=== PATIENT | female | born 1970 | race Caucasian/White ===

== ENCOUNTER 2023-04-26 12:06 | Observation (INO) | payer BC, SELFPAY ==
[2023-04-26] VITALS (10 sets, daily range): BP systolic 97–146; BP diastolic 41–88; PULSE 72–84; RESP 12–20; TEMP 36.2–36.8; O2SAT 91–100; BMI 31.1
--- NOTE | ~2023-04-26 | CT_ITS ---
EXAMINATION: CT HEAD WITHOUT CONTRAST CLINICAL INFORMATION: Syncope. Head strike. COMPARISON: None available. TECHNIQUE: Contiguous axial imaging was performed from the skull base to vertex without intravenous administration of contrast. This CT examination was performed using dose optimization techniques as appropriate, variously including the following: *Automated exposure control *Adjustment of mA and/or kV according to patient size (this includes techniques or standardized protocols for targeted exams where dose is matched to indication/reason for exam; i.e. extremities or head) *Use of iterative reconstruction technique DLP: 597 mGy-cm FINDINGS: There is no evidence of acute intracranial hemorrhage or territorial infarction. No mass effect or midline shift is seen. Ruiz to white matter differentiation is well preserved. No extra-axial fluid collections are identified. No hydrocephalus. The calvarium is intact. The mastoid air cells are clear. Mucoperiosteal thickening of the ethmoid air cells. CT/CT head/brain wo IV con IMPRESSION: No acute intracranial pathology.
[2023-04-26 12:31] LABS: Glucose, Whole Blood 76 mg/dL (60-115)
--- NOTE | 2023-04-26 12:32 | ECG_ITS ---
Test Reason : syncope Blood Pressure : / mmHG Vent. Rate : 078 BPM Atrial Rate : 078 BPM P-R Int : 164 ms QRS Dur : 142 ms QT Int : 418 ms P-R-T Axes : 021 039 197 degrees QTc Int : 476 ms Normal sinus rhythm Left bundle branch block Abnormal ECG No previous ECGs available Referred By: Marisa Head Electronically Signed By:FROYLAN ZAPATA
--- NOTE | 2023-04-26 12:32 | ED.SYNCOPE ---
HPI - Syncope General Chief Complaint: Syncope Stated Complaint: SYNCOPAL EPISODE DIZZY NAUSEA Time Seen by Provider: 04/26/23 12:06 Source: patient and EMS Mode of arrival: EMS Limitations: no limitations History of Present Illness HPI narrative: 53 yo female with PMHx significant for diabetes, HTN, CAD presents to the ED today via EMS s/p pre syncopal episode just prior to arrival. Patient states that she was sitting at her kitchen table when she got up to walk to the bathroom and immediately felt faint, had blurry vision and fell to the floor hitting her head on the kitchen chair. Denies LOC. Not on AC. She was unable to get up directly after the fall, her sister had to help her up. Reports feeling fatigued over the last couple weeks and notes a history of anemia. Additionally she states that she has struggled with syncopal episodes since she was a child and was diagnosed with a LBBB. Denies fever, chills, sweats, dizziness, chest pain, palpitations, SOB, CONN, n/v, abdominal pain, lower extremity tingling numbness or weakness. Related Data Home Medications Medication Instructions Recorded Confirmed atorvastatin 20 mg tablet 20 mg PO DAILY 04/26/23 04/26/23 carvedilol 12.5 mg tablet 12.5 mg PO BID 04/26/23 04/26/23 cholecalciferol (vitamin D3) 25 25 mcg PO DAILY 04/26/23 04/26/23 mcg (1,000 unit) tablet (Vitamin D3) diazepam 5 mg tablet 5 mg PO BID PRN Anxiety 04/26/23 04/26/23 gabapentin 600 mg tablet 600 mg PO TID 04/26/23 04/26/23 ibuprofen 800 mg tablet 800 mg PO Q8H PRN Pain 04/26/23 04/26/23 insulin glargine 100 unit/mL (3 28 unit subcut BID 04/26/23 04/26/23 mL) subcutaneous pen lisinopril 5 mg tablet 5 mg PO DAILY 04/26/23 04/26/23 pantoprazole 40 mg granules 40 mg PO DAILY 04/26/23 04/26/23 delayed-release for susp in packet quetiapine 100 mg tablet 100 mg PO BID 04/26/23 04/26/23 quetiapine 400 mg tablet 400 mg PO BEDTIME 04/26/23 04/26/23 semaglutide 14 mg tablet (Rybelsus) 14 mg PO DAILY 04/26/23 04/26/23 trazodone 150 mg tablet 300 - 450 mg PO BEDTIME PRN 04/26/23 04/26/23 Insomnia valacyclovir 500 mg tablet 500 mg PO DAILY 04/26/23 04/26/23 Allergies Allergy/AdvReac Type Severity Reaction Status Date / Time Sulfa (Sulfonamide Allergy Rash Verified 04/26/23 12:28 Antibiotics) canagliflozin [From Invokana] AdvReac Unknown Verified 04/26/23 12:28 metformin AdvReac Diarrhea Verified 04/26/23 12:28 Review of Systems Review of Systems: Constitutional: No fever, No chills, No fatigue, No malaise ENT/Mouth: No ear pain, No hearing loss, No nasal congestion, No sinus pain, No rhinorrhea, No sore throat Eyes: No eye pain, No swelling, No redness, + vision changes, No foreign body, No discharge Cardio: No chest pain, No palpitations, No dyspnea on exertion, No orthopnea, No edema Respiratory: No SOB, No cough, No sputum, No wheezing, No dyspnea, No hemoptysis GI: No nausea, No vomiting, No hematemesis, No abdominal pain, No diarrhea, No constipation, No hematochezia, No melena : No irregular bleeding, No dysuria, No frequency, No urgency, No hesitancy, No hematuria, No flank pain MSK: No back pain, No neck pain, No joint pain, No myalgias Skin: No skin lesions, No rashes Neuro: No weakness, No numbness, No paresthesias, No LOC, No dizziness, No headache All other systems reviewed and are negative. [facility] Past Medical History Attestation statement: The following information was validated with the patient. Source: old records reviewed Medical History Gastroesophageal reflux disease Mood disorder Essential hypertension Coronary artery disease Insulin dependent type 2 diabetes mellitus Social History Social History Household Members: Family Housing: House Alcohol intake: never Patient Tobacco Use Status: Former Tobacco user Tobacco use type: Cigarette e-Cigarette/Vaping Use: Former Use Second Hand Smoke Exposure: No Physical Exam Vital Signs: Vital Signs: Last Vital Signs Temp 98.0 F 04/27/23 07:36 Pulse 70 04/27/23 09:41 Resp 19 04/27/23 07:36 BP 122/64 04/27/23 09:41 Pulse Ox 96 04/27/23 09:41 O2 Del Method Room Air 04/27/23 09:41 BMI result Body Mass Index 31.1 Vital signs stable General: Nontoxic appearing. NAD Skin: Warm and dry. No rashes or lesions. Head: Normocephalic, atraumatic. EENT: PERRLA. EOM intact. Nasal septum midline without hematoma, nares patent. Oropharynx normal. Moist mucous membranes. Neck: Supple without LAD. Normal ROM. Trachea midline. Cardiac: Chest wall symmetric. RRR. S1 and S1 appreciated. No MRG. No JVD. Lungs: CTA bilaterally. No rales, rhonchi, or wheezes. Normal respiratory effort without accessory muscle use. No flail chest. Abdomen: No visible lesions or scars. Soft, NT/ND. No rebound tenderness or guarding. Normoactive BS x4. Spine: No midline spinous tenderness. No deformity or step off. Ext: Upper and lower extremities atraumatic. Full ROM throughout. Capillary refill <2 seconds in all extremities. Pulses 2+ equal b/l. Neuro: Alert and oriented x3. Normal speech. CN 2-12 grossly intact. Strength 5/5 intact throughout. Sensation intact to light touch. NV intact distally. Reflexes 2+ bilaterally. Normal finger to nose, heel to [place]. Ambulating with steady gait. Psych: Appropriate mood and affect. Responds appropriately to questions. Course Course Course Narrative: 1326-- CBC without leukocytosis or anemia. EKG showing NSR at 78 BPM with LBBB without priors to compare to (per patient this is her baseline). Chemistry without acute electrolyte abnormalities requiring intervention. POC glucose 81 after drinking orange juice. Lipase WNL. Urine with 4+ bacteria however negative leukocyte esterase, nitrates, minimal WBC, likely contamination as patient is asymptomatic > no urinary tract infection. > orthostatics negative > patient currently receiving IVF > covid and influenza negative > Ambulating with steady gate to the bathroom 1415-- patient states that she is feeling better in the ED after receiving IVF, no longer feeling faint or having blurred vision. Once IVF are complete, will have nurse trial ambulation. 1213-- Signed out to my colleague Katie RODRIGUEZ [id number]-- ED care transferred to PATY Rubi pending ambulation trial and anticipated discharge Medications Administered Generic Name Dose Route Start Last Admin Trade Name Freq PRN Reason Stop Dose Admin Acetaminophen 650 mg 04/26/23 19:20 04/26/23 20:22 Acetaminophen 325 Mg Tablet PO 650 mg Q6H PRN Administration Pain, Mild (Pain Scale 1-3) Atorvastatin Calcium 20 mg 04/27/23 09:00 04/27/23 09:34 Atorvastatin Calcium 20 Mg Tablet PO 20 mg DAILY TRACI Administration Carvedilol 12.5 mg 04/27/23 09:00 04/27/23 09:33 Carvedilol 12.5 Mg Tablet PO 12.5 mg BID TRACI Administration Protocol Gabapentin 600 mg 04/26/23 22:50 04/27/23 09:34 Gabapentin 600 Mg Tablet PO 600 mg TID TRACI Administration Insulin Glargine 22 unit 04/27/23 09:00 04/27/23 09:38 Insulin Glargine,Hum.Rec.Anlog 100 Unit/Ml 10 Ml Vial SUBCUT 22 unit BID TRACI Administration Insulin Human Lispro 0 unit 04/26/23 21:00 04/27/23 08:18 Insulin Lispro 100 Unit/Ml 3 Ml Vial SUBCUT Not Given QIDACHS [facility] Protocol Lisinopril 5 mg 04/27/23 09:00 04/27/23 09:36 Lisinopril 5 Mg Tablet PO 5 mg DAILY TRACI Administration Protocol Omeprazole 20 mg 04/27/23 09:00 04/27/23 09:37 Omeprazole 20 Mg Capsule.Dr PO 20 mg DAILY TRACI Administration Quetiapine Fumarate 100 mg 04/27/23 09:00 04/27/23 09:35 Quetiapine Fumarate 100 Mg Tablet PO 100 mg BID TRACI Administration Sodium Chloride 3 ml 04/27/23 00:00 04/27/23 09:38 0.9 % Sodium Chloride Flush 3 Ml Syringe IVFLUSH 3 ml QSHIFT TRACI Administration Trazodone HCl 300 mg 04/26/23 22:48 04/26/23 23:30 Trazodone Hcl 100 Mg Tablet PO 300 mg BEDTIME PRN Administration Insomnia Valacyclovir HCl 500 mg 04/27/23 09:00 04/27/23 09:32 Valacyclovir Hcl 500 Mg Tablet PO 500 mg DAILY TRACI Administration Vitamin D 25 mcg 04/27/23 09:00 04/27/23 09:35 Cholecalciferol (Vitamin D3) 25 Mcg Tablet PO 25 mcg DAILY TRACI Administration Discontinued Medications Generic Name Dose Route Start Last Admin Trade Name Malik PRN Reason Stop Dose Admin Sodium Chloride 1,000 mls @ 999 mls/hr 04/26/23 14:15 04/26/23 15:53 Ns IV 04/26/23 15:15 Infused .Q1H1M TRACI Infusion Quetiapine Fumarate 400 mg 04/26/23 22:43 04/26/23 23:30 Quetiapine Fumarate 400 Mg Tablet PO 04/26/23 22:44 400 mg ONCE ONE Administration Medical Decision Making Medical Decision Making [facility] Narrative: 53 yo female with PMHx significant for diabetes presents to the ED today via EMS s/p pre syncopal episode just prior to arrival. VSS. Patient nontoxic appearing in NAD. PERRLA. RRR. Lungs CTA b/l. No midline spinous tenderness, deformity, or step-off. Exam nonfocal. Cerebellum intact. Ambulating with steady gait. Clinical concern for orthostatic hypotension vs hypoglycemia vs vasovagal syncope > will obtain basic labs and orthostatic vital signs. Patient will be given IVF, Low clinical concern for ACS or arrhythmia > will obtain EKG. Concern for possible viral syndrome > will obtain serology. Low clinical concern for CVA/TIA, ICH, cerebellar stroke > will obtain a head CT. Low suspicion for UTI > will obtain urinalysis. Differential Diagnosis Differential Diagnoses: The differential diagnosis associated with the presentation includes Clinical concern for orthostatic hypotension vs hypoglycemia vs vasovagal syncope > will obtain basic labs and orthostatic vital signs. Patient will be given IVF, Low clinical concern for ACS or arrhythmia > will obtain EKG. Concern for possible viral syndrome > will obtain serology. Low clinical concern for CVA/TIA, ICH, cerebellar stroke > will obtain a head CT. Low suspicion for UTI > will obtain urinalysis. Admission/Observation Consideration of admission/observation: Escalation of care including admission/observation considered Unlikely Consult Healthcare Provider Management of the patient was discussed with: Hospitalist Lab Data [facility] Lab Attestation statement: I reviewed the patient's lab results. See above course narrative. 04/27/23 06:26 04/27/23 06:26 Labs: Lab Results 04/26/23 04/26/23 04/26/23 Range/Units 12:19 13:06 14:06 WBC 10.1 (4.8-10.8) X10*3/uL RBC 4.24 (4.20-5.50) X10*6/uL Hgb 12.7 (12.0-16.0) g/dl Hct 38.4 (37.0-47.0) % MCV 90.6 (80.0-98.0) fL MCH 30.0 (27.0-33.0) pg MCHC 33.1 (31.0-35.0) g/dl RDW 12.9 (11.0-16.0) % Plt Count 274 (160-400) X10*3/uL MPV 10.8 (9.4-12.3) fL Immature Gran % (Auto) 0.3 (0.0-0.4) % Neut % (Auto) 73.1 H (45-73) % Lymph % (Auto) 17.9 L (20-40) % [place] % (Auto) 6.9 (2-11) % Eos % (Auto) 1.3 (0-4) % Baso % (Auto) 0.5 (0-2) % Lymph # (Auto) 1.8 (1.2-4.9) X10*3/uL [place] # (Auto) 0.7 (0.1-1.2) X10*3/uL Eos # (Auto) 0.1 (0.0-0.4) X10*3/uL Baso # (Auto) 0.1 (0.0-0.2) X10*3/uL Abs Immat Gran (auto) 0.03 (0.00-0.03) X10*3/uL Absolute Neuts (auto) 7.4 (2.0-8.3) x10*3/uL Absolute Nucleated RBC 0.000 (0.0-0.012) X10*3/uL Nucleated RBC % (auto) 0.0 (0.0-0.2) /100WBC PT (11.1-13.3) SEC INR (0.9-1.1) APTT (26.0-36.4) SEC D-Dimer High Sensitivty NG/ML Sodium 139 (135-145) mmol/L Potassium 4.8 (3.3-5.1) mmol/L Chloride 107 (96-108) mmol/L Carbon Dioxide 28 (22-29) mmol/L Anion Gap 9 L (12-20) BUN 14 (9-16) mg/dL Creatinine 0.77 (0.5-1.4) mg/dL Estim Creat Clear Calc 79.0 Estimated GFR > 60 POC Glucose 76 (60-115) mg/dL Random Glucose 85 (60-115) mg/dL Calcium 9.8 (8.4-10.2) mg/dL Magnesium 1.8 (1.6-2.6) mg/dL Total Bilirubin 0.3 (0.0-1.0) mg/dL AST 20 (5-31) U/L ALT 17 (0-31) U/L Alkaline Phosphatase 83 (39-117) U/L Troponin I High Sens (<3.5-17.0) ng/L Total Protein 7.2 (6.5-8.0) g/dL Albumin 4.1 (3.5-5.0) g/dL Lipase 8 (8-78) U/L Urine Color Yellow Urine Appearance Cloudy Urine pH 5.5 (5.0-9.0) Ur Specific [place] 1.025 (1.005-1.025) Urine Protein 30 (1+) H (Neg-Trace) mg/dL Urine Glucose (UA) Negative (Negative) mg/dL Urine Ketones Trace (Negative) mg/dL Urine Blood Negative (Negative) Urine Nitrite Negative (Negative) Ur Leukocyte Esterase Negative (Negative) Urine RBC 0-2 (0-2) /HPF Urine WBC 0-5 (0-5) /HPF Ur Squamous Epith Cells >20 (0-2) /HPF Urine Bacteria 4+ (None Seen) Hyaline Casts 3-5 (0-2) /LPF COVID-19 (JENNIFER) Negative (Negative) COVID-19 Clin Com See Note Influenza Type A (CYNTHIA) Invalid Negative (Negative) Influenza Type B (CYNTHIA) Invalid Negative (Negative) Influenza A & B Note See Note See Note 04/26/23 04/26/23 Range/Units 14:15 17:06 WBC (4.8-10.8) X10*3/uL RBC (4.20-5.50) X10*6/uL Hgb (12.0-16.0) g/dl Hct (37.0-47.0) % MCV (80.0-98.0) fL MCH (27.0-33.0) pg MCHC (31.0-35.0) g/dl RDW (11.0-16.0) % Plt Count (160-400) X10*3/uL MPV (9.4-12.3) fL Immature Gran % (Auto) (0.0-0.4) % Neut % (Auto) (45-73) % Lymph % (Auto) (20-40) % [place] % (Auto) (2-11) % Eos % (Auto) (0-4) % Baso % (Auto) (0-2) % Lymph # (Auto) (1.2-4.9) X10*3/uL [place] # (Auto) (0.1-1.2) X10*3/uL Eos # (Auto) (0.0-0.4) X10*3/uL Baso # (Auto) (0.0-0.2) X10*3/uL Abs Immat Gran (auto) (0.00-0.03) X10*3/uL Absolute Neuts (auto) (2.0-8.3) x10*3/uL Absolute Nucleated RBC (0.0-0.012) X10*3/uL Nucleated RBC % (auto) (0.0-0.2) /100WBC PT 13.1 (11.1-13.3) SEC INR 1.1 (0.9-1.1) APTT 34.2 (26.0-36.4) SEC D-Dimer High Sensitivty < 150 NG/ML Sodium (135-145) mmol/L Potassium (3.3-5.1) mmol/L Chloride (96-108) mmol/L Carbon Dioxide (22-29) mmol/L Anion Gap (12-20) BUN (9-16) mg/dL Creatinine (0.5-1.4) mg/dL Estim Creat Clear Calc Estimated GFR POC Glucose 81 (60-115) mg/dL Random Glucose (60-115) mg/dL Calcium (8.4-10.2) mg/dL Magnesium (1.6-2.6) mg/dL Total Bilirubin (0.0-1.0) mg/dL AST (5-31) U/L ALT (0-31) U/L Alkaline Phosphatase (39-117) U/L Troponin I High Sens 21.4 H (<3.5-17.0) ng/L Total Protein (6.5-8.0) g/dL Albumin (3.5-5.0) g/dL Lipase (8-78) U/L Urine Color Urine Appearance Urine pH (5.0-9.0) Ur Specific [place] (1.005-1.025) Urine Protein (Neg-Trace) mg/dL Urine Glucose (UA) (Negative) mg/dL Urine Ketones (Negative) mg/dL Urine Blood (Negative) Urine Nitrite (Negative) Ur Leukocyte Esterase (Negative) Urine RBC (0-2) /HPF Urine WBC (0-5) /HPF Ur Squamous Epith Cells (0-2) /HPF Urine Bacteria (None Seen) Hyaline Casts (0-2) /LPF COVID-19 (JENNIFER) (Negative) COVID-19 Clin Com Influenza Type A (CYNTHIA) (Negative) Influenza Type B (CYNTHIA) (Negative) Influenza A & B Note Independent Interpretation I performed an independent interpretation of an: EKG and CT Scan Interpretation: EKG with normal sinus rhythm at 78 bpm, left bundle-branch block, no acute ischemic changes CT head without acute intracranial pathology, agree with radiologist's interpretation. Radiology Impression Discussion of test interpretation with radiology: I have reviewed the radiologist's reading. Radiologist Impression: CT head/brain wo IV con IMPRESSION: No acute intracranial pathology. Independent Historian Clinical information obtained from an independent historian. History obtained from or confirmed by: EMS Prescription Management I considered prescription management with: Pain Medication Chronic Conditions Patient?s care impacted by: Diabetes and Hypertension Critical Care Time Critical Care Time Critical Care Time: Yes Total Critical Care Time: 35 Attestation: Critical care time in the amount of 35 minutes has been provided to the patient in terms of direct patient care, frequent reevaluation, consultation with hospitalist, review and interpretation of medical data and results, and management of potentially life-threatening conditions. This is all outside of any medical procedures. Discharge Plan Discharge Clinical Impression: Postural dizziness with presyncope, Hypoglycemia Patient Disposition: Admitted as Observation Interventions: Admission Worksheet (ED) Last Done: 04/26/23 22:19 Discharge Date/Time: 04/26/23 22:20
--- NOTE | 2023-04-26 12:43 | PC.NURSE ---
NICHOLASChai from [facility] where she had a witnessed syncopal episode this morning. Hit nose on chair, reported vomiting x1 after hitting head, along with blurry vision. No LOC. A & Ox3, speech wnl. No motor deficits are noted, muscle strength is 5/5 bilaterally. Denies any blurry vision/TATE/N/V currently. POC 76. Placed on bedside monitor. 20 L ac from EMS, Brant laravalentina changed to hospitals. Lung sounds CTA in all dc.
[2023-04-26 13:10] LABS: MANUAL DIFF FLAG NO
[2023-04-26 13:14] LABS: Basophils Absolute Auto 0.1 X10*3/uL (0.0-0.2); Basophils Percent Auto 0.5 % (0-2); Eosinophils Absolute Auto 0.1 X10*3/uL (0.0-0.4); Eosinophils Percent Auto 1.3 % (0-4); Hematocrit 38.4 % (37.0-47.0); Hemoglobin 12.7 g/dl (12.0-16.0); Imm Gran Abs Auto 0.03 X10*3/uL (0.00-0.03); Imm Gran Pct Auto 0.3 % (0.0-0.4); Lymphocytes Absolute Auto 1.8 X10*3/uL (1.2-4.9); Lymphocytes Percent Auto 17.9 % (20-40); Mean Corpuscular HGB Conc 33.1 g/dl (31.0-35.0); Mean Corpuscular Volume 90.6 fL (80.0-98.0); Mean Platelet Volume 10.8 fL (9.4-12.3); Monocytes Absolute Auto 0.7 X10*3/uL (0.1-1.2); Monocytes Percent Auto 6.9 % (2-11); Neutrophils Absolute Auto 7.4 x10*3/uL (2.0-8.3); Neutrophils Percent Auto 73.1 % (45-73); Platelet Count 274 X10*3/uL (160-400); Red Blood Count 4.24 X10*6/uL (4.20-5.50); Red Cell Distribution Width 12.9 % (11.0-16.0); White Blood Count 10.1 X10*3/uL (4.8-10.8)
[2023-04-26 13:31] LABS: Alanine Aminotransferase 17 U/L (0-31); Albumin Level 4.1 g/dL (3.5-5.0); Alkaline Phosphatase 83 U/L (39-117); Anion Gap 9 (12-20); Aspartate Amino Transferase 20 U/L (5-31); Bilirubin Total 0.3 mg/dL (0.0-1.0); Blood Urea Nitrogen 14 mg/dL (9-16); Calcium 9.8 mg/dL (8.4-10.2); Carbon Dioxide 28 mmol/L (22-29); Chloride 107 mmol/L (96-108); Estimated Glomerular Filt Rate > 60; Glucose Random 85 mg/dL (60-115); Lipase 8 U/L (8-78); Magnesium 1.8 mg/dL (1.6-2.6); Potassium 4.8 mmol/L (3.3-5.1); Sodium 139 mmol/L (135-145); Total Protein 7.2 g/dL (6.5-8.0)
[2023-04-26 13:34] LABS: COVID-19 Test Negative (Negative); IDNOW Serial# 08D9AD1C
[2023-04-26 13:35] LABS: IDNOW Serial# BCCEAD1C; Influenza A Invalid (Negative); Influenza B2 Invalid (Negative)
[2023-04-26] MEDS: 0.9 % Sodium Chloride 1,000 ML 999 ML IV (14:12)
[2023-04-26 14:17] LABS: Appearance Urine Cloudy; Color Urine Yellow; Glucose Urine UA Negative (Negative); Leukocyte Esterase Urine Negative (Negative); Nitrite Urine Negative (Negative); PH 5.5 (5.0-9.0); Specific Gravity - Urine 1.025 (1.005-1.025); UMIC TRIGGER UACC YES; Urine Blood Negative (Negative); Urine Ketones Trace mg/dL (Negative); Urine Protein 30 (1+) mg/dL (Neg-Trace)
--- NOTE | 2023-04-26 14:17 | PC.NURSE ---
Resting quietly in bed. Fluids started as ordered. Friend at bedside. NAD.
[2023-04-26 14:18] LABS: Glucose, Whole Blood 81 mg/dL (60-115)
[2023-04-26 14:20] LABS: Bacteria Urine 4+ (None Seen); RBC Urine 0-2 /HPF (0-2); Squamous Epithelial Cell Urine >20 /HPF (0-2); WBC Urine 0-5 /HPF (0-5)
[2023-04-26 14:29] LABS: IDNOW Serial# BCCEAD1C; Influenza A Negative (Negative); Influenza B2 Negative (Negative)
[2023-04-26 17:36] LABS: INTERNATIONAL NORM RATIO 1.1 (0.9-1.1); Prothrombin Time 13.1 SEC (11.1-13.3)
[2023-04-26 17:38] LABS: Partial Thromboplastin Time 34.2 SEC (26.0-36.4); Troponin-I High Sensitivity 21.4 ng/L (<3.5-17.0)
[2023-04-26 17:43] LABS: D Dimer High Sensitivity < 150 NG/ML
--- NOTE | 2023-04-26 19:21 | PM.IMHP ---
History of Present Illness Date of Service: 04/26/23 Chief Complaint: Syncope This is a 53-year-old female with pertinent history of insulin-dependent diabetes mellitus, essential hypertension, CAD, history of left bundle branch block, mood disorder, gastroesophageal reflux disease presents to the emergency department for evaluation of syncope. Patient states she has had a history of syncope and was diagnosed with left bundle branch block many years ago. On the day of presentation, patient got up from a seating position and felt dizzy and lightheaded. The next thing she knew she was on the ground. It was associated with nausea. Patient states she thinks she was passed out for about 3-4 minutes. No repeat jerking movement of extremities. No chest pain or palpitations prior to passing out. She denies fever, chills, shortness of breath, abdominal pain, changes in urinary or bowel habits. In the emergency department, mild elevation of troponin seen Review of Systems Constitutional: Constitutional: Reports no additional constitutional complaints ENT: Reports dizziness Cardiovascular: Cardiovascular: Reports no additional cardiovascular complaints and Reports syncope Respiratory: Respiratory: Reports no additional respiratory complaints Gastrointestinal: Gastrointestinal: Reports no additional gastrointestinal complaints Genitourinary: Genitourinary: Reports no additional female genitourinary complaints Neurologic: Reports dizziness and Reports syncope [facility] Medical History Gastroesophageal reflux disease Mood disorder Essential hypertension Coronary artery disease Insulin dependent type 2 diabetes mellitus Pertinent family history: No family history of early CAD Social History Advance Directives: No Advance Directives Information Provided: Yes Meds Allergies Allergy/AdvReac Type Severity Reaction Status Date / Time Sulfa (Sulfonamide Allergy Rash Verified 04/26/23 12:28 Antibiotics) canagliflozin [From Invokana] AdvReac Unknown Verified 04/26/23 12:28 metformin AdvReac Diarrhea Verified 04/26/23 12:28 Physical Exam Vital Signs and Narrative: Vital Signs: Last Vital Signs Temp 98.3 F 04/26/23 12:11 Pulse 74 04/26/23 14:27 Resp 12 04/26/23 14:27 BP 120/71 04/26/23 14:27 Pulse Ox 97 04/26/23 14:27 O2 Del Method Room Air 04/26/23 14:27 BMI result Body Mass Index 31.1 Middle-aged female lying in bed in no distress Neck supple, no JVD Regular rate and rhythm, S1-S2 heard Regular breath sounds bilaterally, no wheezing or crackles appreciated Abdomen soft nontender, no guarding, no rigidity Patient is awake, alert and oriented to self, place, time and person ; no focal motor deficit Psych: Normal mood No pedal edema Results Labs 04/26/23 13:06 04/26/23 13:06 Labs: Laboratory Results - last 24 hr 04/26/23 04/26/23 04/26/23 12:19 13:06 14:06 MCV 90.6 MCH 30.0 MCHC 33.1 RDW 12.9 Plt Count 274 MPV 10.8 Immature Gran % (Auto) 0.3 Neut % (Auto) 73.1 H Lymph % (Auto) 17.9 L [place] % (Auto) 6.9 Eos % (Auto) 1.3 Baso % (Auto) 0.5 Lymph # (Auto) 1.8 [place] # (Auto) 0.7 Eos # (Auto) 0.1 Baso # (Auto) 0.1 Abs Immat Gran (auto) 0.03 Absolute Neuts (auto) 7.4 Absolute Nucleated RBC 0.000 Nucleated RBC % (auto) 0.0 PT INR APTT D-Dimer High Sensitivty Anion Gap 9 L Estim Creat Clear Calc 79.0 Estimated GFR > 60 POC Glucose 76 Random Glucose 85 Calcium 9.8 Magnesium 1.8 Total Bilirubin 0.3 AST 20 ALT 17 Alkaline Phosphatase 83 Total Protein 7.2 Albumin 4.1 Lipase 8 Urine Color Yellow Urine Appearance Cloudy Urine pH 5.5 Ur Specific [place] 1.025 Urine Protein 30 (1+) H Urine Glucose (UA) Negative Urine Ketones Trace Urine Blood Negative Urine Nitrite Negative Ur Leukocyte Esterase Negative Urine RBC 0-2 Urine WBC 0-5 Ur Squamous Epith Cells >20 Urine Bacteria 4+ Hyaline Casts 3-5 COVID-19 (JENNIFER) Negative COVID-19 Clin Com See Note Influenza Type A (CYNTHIA) Invalid Negative Influenza Type B (CYNTHIA) Invalid Negative Influenza A & B Note See Note See Note 04/26/23 04/26/23 14:15 17:06 MCV MCH MCHC RDW Plt Count MPV Immature Gran % (Auto) Neut % (Auto) Lymph % (Auto) [place] % (Auto) Eos % (Auto) Baso % (Auto) Lymph # (Auto) [place] # (Auto) Eos # (Auto) Baso # (Auto) Abs Immat Gran (auto) Absolute Neuts (auto) Absolute Nucleated RBC Nucleated RBC % (auto) PT 13.1 INR 1.1 APTT 34.2 D-Dimer High Sensitivty < 150 Anion Gap Estim Creat Clear Calc Estimated GFR POC Glucose 81 Random Glucose Calcium Magnesium Total Bilirubin AST ALT Alkaline Phosphatase Total Protein Albumin Lipase Urine Color Urine Appearance Urine pH Ur Specific [place] Urine Protein Urine Glucose (UA) Urine Ketones Urine Blood Urine Nitrite Ur Leukocyte Esterase Urine RBC Urine WBC Ur Squamous Epith Cells Urine Bacteria Hyaline Casts COVID-19 (JENNIFER) COVID-19 Clin Com Influenza Type A (CYNTHIA) Influenza Type B (CYNTHIA) Influenza A & B Note Imaging Radiologist's Impressions: Impressions Head CT 04/26/23 13:06 IMPRESSION: No acute intracranial pathology. Assessment and Plan (1) Syncope: Status: Acute Plan This is a 53-year-old female with pertinent history of insulin-dependent diabetes mellitus, essential hypertension, CAD, history of left bundle branch block, mood disorder, gastroesophageal reflux disease presents to the emergency department for evaluation of syncope. #. Syncope. ?orthostatic. Patient resuscitated with IV crystalloids in the ER. Will repeat orthostatics in a.m.. Will admit patient with cardiac monitoring for observation. #. Elevated troponin. Likely in the setting of increased amount. Trend #. CAD. On aspirin, high-intensity statin and beta-elijah #. Essential hypertension. Continue home antihypertensives #. Mood disorder. Continue home mood stabilizers #. Insulin-dependent diabetes mellitus. Initiating Accu-Cheks with sliding scale insulin #. Gastroesophageal reflux disease. On PPI Med rec pending DVT prophylaxis: Lovenox Full code Time Spent With Patient Time: Total time managing care of this patient today ____ minutes. Quality Stroke Does the patient have a stroke diagnosis?: No VTE Prior VTE?: No VTE Risk Level:: Medical - moderate - high VTE Device Contraindication: Treatment Not Indicated VTE Drug Contraindication: N/A - Med Ordered
[2023-04-26] MEDS: Acetaminophen 325 MG TABLET 650 MG PO (20:22)
--- NOTE | 2023-04-26 20:32 | PC.NURSE ---
This RN checked POC:58, RN given sandwich, cheese stick and cheyenne ankita. Pt also given tylenol for general body ache and ice pack for headache 10/16.
[2023-04-26 20:33] LABS: Glucose, Whole Blood 58 mg/dL (60-115)
[2023-04-26 20:35] LABS: Troponin-I High Sensitivity 19.2 ng/L (<3.5-17.0)
--- NOTE | 2023-04-26 20:41 | PC.NURSE ---
This RN attempted to call and give report. RN unavailable.
--- NOTE | 2023-04-26 21:12 | PHA.MEDREC ---
Pharmacy Consult ? Medication Reconciliation Pharmacy has completed the medication reconciliation. LIST OBTAINED FROM [facility]ILY [phone]
--- NOTE | 2023-04-26 21:17 | PC.NURSE ---
This RN called 2 more times in attempt to give report.
[2023-04-26 21:37] LABS: Glucose, Whole Blood 81 mg/dL (60-115)
--- NOTE | 2023-04-26 21:57 | PC.NURSE ---
Report given to Carolin Gaxiola
[2023-04-26] MEDS: traZODone HCL 100 MG TABLET 300 MG PO (23:30)
[2023-04-26] MEDS: QUEtiapine Fumarate 400 MG TABLET PO (23:30)
[2023-04-26] MEDS: Gabapentin 600 MG TABLET PO (23:30)
[2023-04-26] MEDS: 0.9 % Sodium Chloride Flush 3 ML SYRINGE IVFLUSH (23:38)
[2023-04-27] VITALS (8 sets, daily range): BP systolic 101–122; BP diastolic 55–70; PULSE 70–88; RESP 18–20; TEMP 36–36.7; O2SAT 90–96
[2023-04-27 07:08] LABS: MANUAL DIFF FLAG NO
[2023-04-27 07:11] LABS: Basophils Percent Auto 0.6 % (0-2); Eosinophils Absolute Auto 0.2 X10*3/uL (0.0-0.4); Eosinophils Percent Auto 2.8 % (0-4); Hematocrit 34.9 % (37.0-47.0); Hemoglobin 11.4 g/dl (12.0-16.0); Imm Gran Abs Auto 0.01 X10*3/uL (0.00-0.03); Imm Gran Pct Auto 0.2 % (0.0-0.4); Lymphocytes Absolute Auto 2.5 X10*3/uL (1.2-4.9); Lymphocytes Percent Auto 46.1 % (20-40); Mean Corpuscular HGB Conc 32.7 g/dl (31.0-35.0); Mean Corpuscular Hemoglobin 29.9 pg (27.0-33.0); Mean Corpuscular Volume 91.6 fL (80.0-98.0); Monocytes Absolute Auto 0.3 X10*3/uL (0.1-1.2); Monocytes Percent Auto 6.1 % (2-11); Neutrophils Absolute Auto 2.4 x10*3/uL (2.0-8.3); Neutrophils Percent Auto 44.2 % (45-73); Platelet Count 249 X10*3/uL (160-400); Red Blood Count 3.81 X10*6/uL (4.20-5.50); Red Cell Distribution Width 12.7 % (11.0-16.0); White Blood Count 5.4 X10*3/uL (4.8-10.8)
[2023-04-27 07:47] LABS: Anion Gap 12 (12-20); Blood Urea Nitrogen 15 mg/dL (9-16); Calcium 9.4 mg/dL (8.4-10.2); Carbon Dioxide 27 mmol/L (22-29); Chloride 106 mmol/L (96-108); Creatinine Clr Calc Pharmacy 89.4; Estimated Glomerular Filt Rate > 60; Glucose Random 63 mg/dL (60-115); Sodium 141 mmol/L (135-145)
[2023-04-27 08:08] LABS: Glucose, Whole Blood 69 mg/dL (60-115)
[2023-04-27] MEDS: valACYclovir HCL 500 MG TABLET PO (09:32)
[2023-04-27] MEDS: carvediloL 12.5 MG TABLET PO ×2 (09:33→22:04)
[2023-04-27] MEDS: Gabapentin 600 MG TABLET PO ×3 (09:34→22:04)
[2023-04-27] MEDS: Atorvastatin Calcium 20 MG TABLET PO (09:34)
[2023-04-27] MEDS: Cholecalciferol (Vitamin D3) 25 MCG TABLET PO (09:35)
[2023-04-27] MEDS: QUEtiapine Fumarate 100 MG TABLET PO ×2 (09:35→22:04)
[2023-04-27] MEDS: lisinopriL 5 MG TABLET PO (09:36)
[2023-04-27] MEDS: Omeprazole 20 MG CAPSULE.DR PO (09:37)
[2023-04-27] MEDS: 0.9 % Sodium Chloride Flush 3 ML SYRINGE IVFLUSH ×2 (09:38→15:33)
[2023-04-27] MEDS: Insulin Glargine,Hum.rec.anlog 100 UNIT/ML 10 ML VIAL 22 UNIT SUBCUT (09:38)
[2023-04-27 11:42] LABS: Glucose, Whole Blood 93 mg/dL (60-115)
--- NOTE | 2023-04-27 13:20 | MHC.CM.PN ---
SHELLI 04/27. Pt on observation with syncope. Pt travelled here from [place], [place] to visit/help her sister who has breast cancer and had a mastectomy and lives in [place]. D/C plan is to return home to sisters home when medically cleared, and plans to leave to go back to [place] on 05/06. Pts sisters, [id number] will transport her home. PCP: Dr. Joanna Rucker in [place]
--- NOTE | 2023-04-27 15:13 | HO.PM.IMPN ---
Subjective Subjective Date of Service: 04/27/23 Interval History: No recent syncopal episodes after admission. Orthostatics acceptable Review of Systems Denies chest pain Denies shortness of breath Denies nausea vomiting diarrhea Denies fever chills Physical Exam Vital Signs: Vital Signs: Last Vital Signs Temp 98.0 F 04/27/23 14:53 Pulse 88 04/27/23 14:53 Resp 20 04/27/23 14:53 BP 101/55 L 04/27/23 14:53 Pulse Ox 96 04/27/23 14:53 O2 Del Method Room Air 04/27/23 14:53 BMI result Body Mass Index 31.1 Const: Other: Awake alert oriented x3 no acute distress Resp: Other: Clear to auscultation bilaterally no rales rhonchi or wheezes Cardio: Other: No S4; positive S1-S2; no S3 murmurs rubs or gallops GI: Other: Soft nontender nondistended normoactive bowel sounds Neuro: Other: Cranial nerves 2-12 grossly intact as tested. Motor is 5/5 all extremities. Sensation intact. Cognition appropriate Extrem: Other: No edema bilaterally Objective Data Active Medications Acetaminophen (Acetaminophen 325 Mg Tablet) 650 mg PO Q6H PRN PRN Reason: Pain, Mild (Pain Scale 1-3) Last Admin: 04/26/23 20:22 Dose: 650 mg Documented By: GISELA Atorvastatin Calcium (Atorvastatin Calcium 20 Mg Tablet) 20 mg PO DAILY [facility] Last Admin: 04/27/23 09:34 Dose: 20 mg Documented By: NATALIA Carvedilol (Carvedilol 12.5 Mg Tablet) 12.5 mg PO BID [facility]; Protocol Last Admin: 04/27/23 09:33 Dose: 12.5 mg Documented By: NATALIA Dextrose (Dextrose 50 % 25 Gm/50 Ml Syringe) 25 gm IVPUSH Q15M PRN; Protocol PRN Reason: per Hypoglycemia Standing Ord. Diazepam (Diazepam 5 Mg Tablet) 5 mg PO BID PRN PRN Reason: Anxiety Gabapentin (Gabapentin 600 Mg Tablet) 600 mg PO TID [facility] Last Admin: 04/27/23 09:34 Dose: 600 mg Documented By: NATALIA Glucose (Glucose Gel 15 Gm Gel..Gram.) 15 gm PO Q15M PRN; Protocol PRN Reason: per Hypoglycemia Standing Ord. Insulin Glargine (Insulin Glargine,Hum.Rec.Anlog 100 Unit/Ml 10 Ml Vial) 22 unit SUBCUT BID [facility] Last Admin: 04/27/23 09:38 Dose: 22 unit Documented By: NATALIA Insulin Human Lispro (Insulin Lispro 100 Unit/Ml 3 Ml Vial) 0 unit SUBCUT QIDACHS [facility]; Protocol Last Admin: 04/27/23 12:04 Dose: Not Given Documented By: ORIANA Non-Admin Reason: No Insulin Coverage Lisinopril (Lisinopril 5 Mg Tablet) 5 mg PO DAILY [facility]; Protocol Last Admin: 04/27/23 09:36 Dose: 5 mg Documented By: NATALIA Melatonin (Melatonin 3 Mg Tablet) 6 mg PO BEDTIME PRN PRN Reason: Insomnia Omeprazole (Omeprazole 20 Mg Capsule.Dr) 20 mg PO DAILY [facility] Last Admin: 04/27/23 09:37 Dose: 20 mg Documented By: NATALIA Ondansetron HCl (Ondansetron Hcl 4 Mg/2 Ml Vial) 4 mg IVPUSH Q8H PRN PRN Reason: Nausea and Vomiting Quetiapine Fumarate (Quetiapine Fumarate 100 Mg Tablet) 100 mg PO BID [facility] Last Admin: 04/27/23 09:35 Dose: 100 mg Documented By: NATALIA Quetiapine Fumarate (Quetiapine Fumarate 400 Mg Tablet) 400 mg PO BEDTIME [facility] Sodium Chloride (0.9 % Sodium Chloride Flush 3 Ml Syringe) 3 ml IVFLUSH QSHIFT [facility] Last Admin: 04/27/23 09:38 Dose: 3 ml Documented By: NATALIA Trazodone HCl (Trazodone Hcl 100 Mg Tablet) 300 mg PO BEDTIME PRN PRN Reason: Insomnia Last Admin: 04/26/23 23:30 Dose: 300 mg Documented By: MELVI Valacyclovir HCl (Valacyclovir Hcl 500 Mg Tablet) 500 mg PO DAILY [facility] Last Admin: 04/27/23 09:32 Dose: 500 mg Documented By: NATALIA Vitamin D (Cholecalciferol (Vitamin D3) 25 Mcg Tablet) 25 mcg PO DAILY [facility] Last Admin: 04/27/23 09:35 Dose: 25 mcg Documented By: NATALIA Labs 04/27/23 06:26 04/27/23 06:26 Labs: Laboratory Results - last 24 hr 04/26/23 04/26/23 04/26/23 17:06 20:19 21:33 MCV MCH MCHC RDW Plt Count MPV Immature Gran % (Auto) Neut % (Auto) Lymph % (Auto) Kleberg % (Auto) Eos % (Auto) Baso % (Auto) Lymph # (Auto) Kleberg # (Auto) Eos # (Auto) Baso # (Auto) Abs Immat Gran (auto) Absolute Neuts (auto) Absolute Nucleated RBC Nucleated RBC % (auto) PT 13.1 INR 1.1 APTT 34.2 D-Dimer High Sensitivty < 150 Anion Gap Estim Creat Clear Calc Estimated GFR POC Glucose 58 L* 81 Random Glucose Calcium 04/27/23 04/27/23 04/27/23 06:26 08:04 11:34 MCV 91.6 MCH 29.9 MCHC 32.7 RDW 12.7 Plt Count 249 MPV 11.0 Immature Gran % (Auto) 0.2 Neut % (Auto) 44.2 L Lymph % (Auto) 46.1 H Kleberg % (Auto) 6.1 Eos % (Auto) 2.8 Baso % (Auto) 0.6 Lymph # (Auto) 2.5 Kleberg # (Auto) 0.3 Eos # (Auto) 0.2 Baso # (Auto) 0.0 Abs Immat Gran (auto) 0.01 Absolute Neuts (auto) 2.4 Absolute Nucleated RBC 0.000 Nucleated RBC % (auto) 0.0 PT INR APTT D-Dimer High Sensitivty Anion Gap 12 Estim Creat Clear Calc 89.4 Estimated GFR > 60 POC Glucose 69 93 Random Glucose 63 Calcium 9.4 Assessment and Plan (1) Syncope: Status: Acute (2) Coronary artery disease: Status: Acute (3) Essential hypertension: Status: Acute (4) Insulin dependent type 2 diabetes mellitus: Status: Acute Plan This is a 53-year-old female with pertinent history of insulin-dependent diabetes mellitus, essential hypertension, CAD, history of left bundle branch block, mood disorder, gastroesophageal reflux disease presents to the emergency department for evaluation of syncope; no further episodes since admission. Monitor without acute dysrhythmias 1.Syncope -orthostatics unremarkable -check EEG/MR brain -follow-up clinically 2.CAD.(mild trop leak) -asymptomatic -continue outpatient therapies -repeat troponin 3.Essential hypertension -acceptable control on current therapies -adjust as indicated 4.Insulin-dependent diabetes mellitus -acceptable control on current therapies -lispro correctional scale Lovenox Full code Requires ongoing hospitalization for completion of workup for syncope Time Spent With Patient Time: Total time managing care of this patient today ____ minutes. Quality Stroke Does the patient have a stroke diagnosis?: No VTE Prior VTE?: No VTE Risk Level:: Medical - moderate - high VTE Device Contraindication: Treatment Not Indicated VTE Drug Contraindication: N/A - Med Ordered
[2023-04-27 16:05] LABS: Glucose, Whole Blood 65 mg/dL (60-115)
[2023-04-27 16:35] LABS: Glucose, Whole Blood 80 mg/dL (60-115)
--- NOTE | 2023-04-27 18:27 | PC.NURSE ---
MRI called and spoke with dental laboratory technician apprenticefito Galdamez , stated that the test was cancelled by DR. Cope and can be done as outpatient
[2023-04-27 20:35] LABS: Glucose, Whole Blood 121 mg/dL (60-115)
[2023-04-27] MEDS: QUEtiapine Fumarate 400 MG TABLET PO (22:03)
--- NOTE | 2023-04-28 | EEG_ITS ---
FINDINGS: The waking background activity consists of a low voltage posterior 7 to 8 hertz alpha frequency intermixed anteriorly with low-voltage fast frequencies. Photic stimulation is without activation. Hyperventilation was omitted. No sleep stages are identified. No paroxysmal discharges are seen. IMPRESSION: This EEG is considered mildly abnormal due to mild generalized background slowing. No epileptiform discharges are seen. MD SCOTT Willson/DAMASO / [phone]
[2023-04-28] MEDS: 0.9 % Sodium Chloride Flush 3 ML SYRINGE IVFLUSH ×2 (00:18→10:03)
[2023-04-28] MEDS: Acetaminophen 325 MG TABLET 650 MG PO (00:19)
[2023-04-28 03:53] VITALS: BP 105/57; PULSE 74; RESP 20; TEMP 36.1; O2SAT 92
[2023-04-28 07:01] VITALS: BP 113/60; PULSE 73; RESP 20; TEMP 36.5; O2SAT 92
[2023-04-28 07:29] LABS: Glucose, Whole Blood 100 mg/dL (60-115)
[2023-04-28] MEDS: carvediloL 12.5 MG TABLET PO (09:58)
[2023-04-28] MEDS: Atorvastatin Calcium 20 MG TABLET PO (09:58)
[2023-04-28] MEDS: QUEtiapine Fumarate 100 MG TABLET PO (09:59)
[2023-04-28] MEDS: valACYclovir HCL 500 MG TABLET PO (09:59)
[2023-04-28] MEDS: Omeprazole 20 MG CAPSULE.DR PO (10:00)
[2023-04-28] MEDS: Cholecalciferol (Vitamin D3) 25 MCG TABLET PO (10:00)
[2023-04-28] MEDS: lisinopriL 5 MG TABLET PO (10:00)
[2023-04-28] MEDS: Gabapentin 600 MG TABLET PO (10:00)
[2023-04-28 11:00] VITALS: BP 106/58; PULSE 83; RESP 20; TEMP 36.1; O2SAT 98
[2023-04-28 11:13] LABS: Glucose, Whole Blood 119 mg/dL (60-115)
--- NOTE | 2023-04-28 11:52 | MHC.CM.PN ---
Pt is medically cleared for D/C home self-care, pts sisters, [id number] will transport her home.
--- NOTE | 2023-04-28 12:24 | PM.DS ---
DS: Providers Provider Date of Service: 04/28/23 Date of admission: 04/26/23 19:36 Date of discharge: 04/28/23 Primary care physician: PATY Hairston DS: Diagnosis Discharge Diagnosis (1) Syncope: Status: Acute (2) Coronary artery disease: Status: Acute (3) Essential hypertension: Status: Acute (4) Insulin dependent type 2 diabetes mellitus: Status: Acute DS: Summary Hospital Course Hospital Course: 53-year-old female with pertinent history of insulin-dependent diabetes mellitus, essential hypertension, CAD, history of left bundle branch block, mood disorder, gastroesophageal reflux disease presents to the emergency department for evaluation of syncope. Patient states she has had a history of syncope and was diagnosed with left bundle branch block many years ago. On the day of presentation, patient got up from a seating position and felt dizzy and lightheaded. The next thing she knew she was on the ground. It was associated with nausea. Patient states she thinks she was passed out for about 3-4 minutes. No repeat jerking movement of extremities. No chest pain or palpitations prior to passing out. She denies fever, chills, shortness of breath, abdominal pain, changes in urinary or bowel habits. Hospital Course Admitted to ekg monitor tech failed to demonstrate any pathological rhythm. When further queried, states living conditions are not which she describes as ?clean?. She states this has made her nauseous and she does not want to eat. This fits in with a vagal type episode. Explained to patient in depth. . . Agrees with explanation. Will be DC and on PPI in a.m. and H2 RA at HS. Will return to the ER can follow-up with PCP question upper endoscopy. On the day of discharge she is medically acceptable for same. Time Spent with Patient Time attestation: Total time managing care of this patient today ____ minutes. Discharge coordination time: Greater than 30 minutes Quality: Safe Use of Opioids Does Pt have an Active Cancer Diagnosis on the Problem List?: No Quality: Stroke Does the patient have a stroke diagnosis?: No Physical Exam Vital Signs: Vital Signs: Last Vital Signs Temp 96.9 F 04/28/23 11:00 Pulse 83 04/28/23 11:00 Resp 20 04/28/23 11:00 BP 106/58 L 04/28/23 11:00 Pulse Ox 98 04/28/23 11:00 O2 Del Method Room Air 04/28/23 11:00 BMI result Body Mass Index 31.1 Const: Other: Awake alert oriented x3 no acute distress Resp: Other: Clear to auscultation bilaterally no rales rhonchi or wheezes Cardio: Other: No S4; positive S1-S2; no S3 murmurs rubs or gallops GI: Other: Soft nontender nondistended normoactive bowel sounds Neuro: Other: Cranial nerves 2-12 grossly intact as tested. Motor is 5/5 all extremities. Sensation intact. Cognition appropriate Extrem: Other: No edema bilaterally DS: Data Data Completed and Pending Labs on day of discharge: Laboratory Results - last 24 hr 04/27/23 04/27/23 04/27/23 16:00 16:32 20:30 POC Glucose 65 80 121 H 04/28/23 04/28/23 07:03 11:00 POC Glucose 100 119 H Discharge Plan Discharge Anticipated Discharge Date/Time: 04/28/23 12:16 Patient Disposition: Home, Self-Care Discharge Diagnosis: Vasovegal syncope Referrals: Karime Rucker PA [Primary Care Provider] - 1 Week Physician,Unknown J [Physician] - Discharge Medications: New famotidine [Pepcid] 40 mg tablet 40 mg PO BEDTIME Qty: 30 0RF Continued atorvastatin 20 mg Tablet 20 mg PO DAILY carvedilol 12.5 mg Tablet 12.5 mg PO BID Rx Instructions: must administer with a meal/food ibuprofen 800 mg Tablet 800 mg PO Q8H PRN (Reason: Pain) valacyclovir 500 mg Tablet 500 mg PO DAILY quetiapine 100 mg Tablet 100 mg PO BID lisinopril 5 mg Tablet 5 mg PO DAILY pantoprazole [address] For Susp In Packet 40 mg PO DAILY Rybelsus 14 mg Tablet 14 mg PO DAILY gabapentin 600 mg Tablet 600 mg PO TID trazodone 150 mg Tablet 300 - 450 mg PO BEDTIME PRN (Reason: Insomnia) diazepam 5 mg Tablet 5 mg PO BID PRN (Reason: Anxiety) quetiapine 400 mg Tablet 400 mg PO BEDTIME cholecalciferol (vitamin D3) [Vitamin D3] 25 mcg (1,000 unit) Tablet 25 mcg PO DAILY insulin glargine 100 unit/mL (3 mL) Insulin Pen 28 unit SUBCUT BID Discharge Orders: Discharge Order (Routine); Ordered 04/28/23 Ordered By: Jeff Gann Diet: Advance to usual diet Activity on Discharge: As tolerated Stand Alone Forms: Patient Portal Discharge page, Work/School Release Activity Restrictions/Additional Instructions: Your labs today were unremarkable. Your urine was negative for infection. The CT of your head/brain did not show any acute pathology. Orthostatic vital signs were negative. Is being sure you are adequately hydrating herself during the day. When standing up from a seated position get up slowly to allow your blood pressure to equalize. Check your blood sugar often. Follow-up with your primary care physician as needed. Return to the Emergency Department if her symptoms persist or worsen. In case of emergency call 911. Care Plan Goals: Take pantoprazole in the morning and Pepcid at bedtime. Follow-up with your primary care. .. Question GI valve for scope Health Concerns: Resume regular routine. Monitor your diet carefully Plan of Treatment: Continue all other medicines as taken before you came to the hospital Assessment: See discharge summary Patient Instructions: Hypoglycemia in a Person with Diabetes (ED), Near Syncope (ED), Dizziness (ED)
== END 2023-04-28 14:30 | disposition home or self-care (01) ==
LOC: HO.ED 15:23 → HO.EDOVER 19:37 → HO.IMC 20:16
PROVIDERS: Physician Assistant; Physician Assistant Medical; Admitting Provider Student in an Organized Health Care Education/Training Program; Emergency Provider Emergency Medicine; PCP Physician Assistant Medical; Visit Provider Hospitalist
DX: R55 Syncope and collapse (principal); I25.10 Atherosclerotic heart disease of native coronary artery without angina pectoris; I10 Essential (primary) hypertension; E11.9 Type 2 diabetes mellitus without complications; I44.7 Left bundle-branch block, unspecified; R11.0 Nausea; Z20.822 Contact with and (suspected) exposure to COVID-19; Z79.899 Other long term (current) drug therapy; Z79.4 Long term (current) use of insulin; Z87.891 Personal history of nicotine dependence
CPT/HCPCS: 36415; 70450; 80048; 80053; 81001; 82947; 83690; 83735; 84484; 85025; 85379; 85610; 85730; 87502; 87635; 93005; 95816; 96360; 96361; 96372; 99222; 99285

== ENCOUNTER → 2023-04-26 19:36 | Outpatient (BNV) | payer BC, SELFPAY | PROVIDERS: Admitting Provider Student in an Organized Health Care Education/Training Program; Emergency Provider Emergency Medicine; Visit Provider Student in an Organized Health Care Education/Training Program | DX: I10 Essential (primary) hypertension (principal); E11.9 Type 2 diabetes mellitus without complications; Z79.4 Long term (current) use of insulin; I25.10 Atherosclerotic heart disease of native coronary artery without angina pectoris; R55 Syncope and collapse | CPT/HCPCS: 99222; 99233; 99239 ==